=== PATIENT | male | born 1940 | race Caucasian/White ===

== ENCOUNTER 2016-06-07 16:45 | Emergency (ER) | payer MEDICARE, BC ==
[~2016-06-07] VITALS: Ht 182.9 cm; Wt 87.1 kg
--- NOTE | 2016-06-07 17:18 | Urgent Treatment Center Report ---
History of Present Issue Date/Time Seen by Provider 06/07/16 1710 Visit Reason Pt arrived:Walked Presenting Problem:PT STATES BEING RELEASED BY FOR HIP REPLACEMENT A MONTH AGO. STATES HE HAS BEEN DOING USUAL ACTIVITIES SINCE. STATES TODAY HE WAS TRAVELING WITH SON AND WAS IN AND OUT OF TRUCK FREQUENTLY. STATES ATTEMPTED TO GET BACK INTO TRUCK AND WENT TO RAISE LEG AND HAD PAIN TO LOWER RIGHT BACK ABOVE HIP. Location if Accident: Onset of symptoms date/time:06/07/16/ or onset unknown for:MEDICAL HX UNKNOWN Have you (or family members/close friends) recently traveled outside the [place]? N If Yes, where/when: Have you had exposure to infectious disease within the past month? TB? Other? Specify: Patient state that he had hip replacement surgery in 2016 states that he was recently released by his doctor to go back to full activity. States that for the last month he has been doing all his previous activities without problems states that yesterday he may have over did it with getting in and out of the car multiple times states that today he was riding with his son and as he went to get back in truck he raised his leg and felt pain that shot through his hip up into his back area and has now having some discomfort with movement of hip ALLERGIES Coded Allergies: Penicillins (I-HIVES 11/17/15) hydrocodone (NA-NAUSEA 11/17/15) History Medical History General CAD? No Angina: No NE: No Hypertension? Yes Hyperlipidemia? Yes CHF? No DVT? No PE? No COPD? No Asthma? No Anemia? No GERD? Yes Gastric ulcers? No GI Bleed? No Hernia? No Thyroid Problems? Yes Hypothyroidism? Yes CVA? No Seizures? 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 Yes Renal Insuffiency? No UTI? No Stones? No BPH? Yes GB Disease: No Nephritic Syndrome? No Asplenia? No Hepatitis? No Sickle Cell Disease? No Arthritis? No Migraines? No Cataracts? No Glaucoma? No MRSA? No HIV? No TB? No Anxiety? No Depression? No Cancer? No Immunization HX DT/Tetanus Unknown Flu NEVER Pneumonia REFUSES Surgical Hx Previous Surgery?Y CABG 2009 [facility] SX HEIDI WRIST CYST FROM BACK RIGHT HIP REPLACEMENT Family History Family HX Diabetes No CAD Yes Hypertension Yes Hyperlipidemia Yes Cancer No TB No Social History Smoking Hx Smoker: Never Smoker Tobacco: No Alcohol Alcohol: No Review of Systems All Other Systems Reviewed and Negative Musculoskeletal other (hip pain) Physical Exam Vital Signs Vital Signs Date Time Temp Pulse Resp B/P Pulse O2 O2 Flow FiO2 Ox Delivery Rate 06/07 1700 97.6 79 20 106/73 99 General Appearance normal appearance, WD/WN, no apparent distress, mild distress Respiratory Status Yes: trachea midline, chest symmetrical, non tender chest. No: respiratory distress. 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 States he came in because he was afraid the hip came out of place Medical Decision Making LABS/Meds/Orders Pt receiving controlled substance in ED? No Results/Orders Orders Procedure Date/time Status HIP RT 2-3V W/PELVIS IF PERFOR 06/08 1707 Active XRAY/CT/US XRAY/CT/US XRAY hip XR interpretation by reviewed by me Xray Results normal/NAD, no fracture seen Departure Departure Time of Disposition 1807 Disposition DC Home or Self Care(routine) Clinical Impression Primary Impression: Hip pain Qualifiers: Laterality: right Qualified Code: M25.551 - Pain in right hip Condition STABLE Referrals No AREVALO,Edward (Family) SOLANGE MISHRA B: Tomorrow-Call Office Call office first thing in morning and get appointment Make sure to let them know about being in the [facility] tonight and issues seen for. Patient Instructions Help for Hip Pain Additional Instructions Rest Take Prescribed Tramadol as directed for pain Follow up with Dr Simpson tomorrow as he is done the hip replacment Follow up with family doctor Return if needed at 1812
--- NOTE | 2016-06-07 17:18 | Urgent Treatment Center Report ---
History of Present Issue Date/Time Seen by Provider 06/07/16 1710 Visit Reason Pt arrived:Walked Presenting Problem:PT STATES BEING RELEASED BY FOR HIP REPLACEMENT A MONTH AGO. STATES HE HAS BEEN DOING USUAL ACTIVITIES SINCE. STATES TODAY HE WAS TRAVELING WITH SON AND WAS IN AND OUT OF TRUCK FREQUENTLY. STATES ATTEMPTED TO GET BACK INTO TRUCK AND WENT TO RAISE LEG AND HAD PAIN TO LOWER RIGHT BACK ABOVE HIP. Location if Accident: Onset of symptoms date/time:06/07/16/ or onset unknown for:MEDICAL HX UNKNOWN Have you (or family members/close friends) recently traveled outside the [place]? N If Yes, where/when: Have you had exposure to infectious disease within the past month? TB? Other? Specify: Patient state that he had hip replacement surgery in 2016 states that he was recently released by his doctor to go back to full activity. States that for the last month he has been doing all his previous activities without problems states that yesterday he may have over did it with getting in and out of the car multiple times states that today he was riding with his son and as he went to get back in truck he raised his leg and felt pain that shot through his hip up into his back area and has now having some discomfort with movement of hip ALLERGIES Coded Allergies: Penicillins (I-HIVES 11/17/15) hydrocodone (NA-NAUSEA 11/17/15) History Medical History General CAD? No Angina: No [place]: No Hypertension? Yes Hyperlipidemia? Yes CHF? No DVT? No PE? No COPD? No Asthma? No Anemia? No GERD? Yes Gastric ulcers? No GI Bleed? No Hernia? No Thyroid Problems? Yes Hypothyroidism? Yes CVA? No Seizures? 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 Yes Renal Insuffiency? No UTI? No Stones? No BPH? Yes GB Disease: No Nephritic Syndrome? No Asplenia? No Hepatitis? No Sickle Cell Disease? No Arthritis? No Migraines? No Cataracts? No Glaucoma? No MRSA? No HIV? No TB? No Anxiety? No Depression? No Cancer? No Immunization HX DT/Tetanus Unknown Flu NEVER Pneumonia REFUSES Surgical Hx Previous Surgery?Y CABG 2009 [facility] SX HEIDI WRIST CYST FROM BACK RIGHT HIP REPLACEMENT Family History Family HX Diabetes No CAD Yes Hypertension Yes Hyperlipidemia Yes Cancer No TB No Social History Smoking Hx Smoker: Never Smoker Tobacco: No Alcohol Alcohol: No Review of Systems All Other Systems Reviewed and Negative Musculoskeletal other (hip pain) Physical Exam Vital Signs Vital Signs Date Time Temp Pulse Resp B/P Pulse O2 O2 Flow FiO2 Ox Delivery Rate 06/07 1700 97.6 79 20 106/73 99 General Appearance normal appearance, WD/WN, no apparent distress, mild distress Respiratory Status Yes: trachea midline, chest symmetrical, non tender chest. No: respiratory distress. 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 States he came in because he was afraid the hip came out of place Medical Decision Making LABS/Meds/Orders Pt receiving controlled substance in ED? No Results/Orders Orders Procedure Date/time Status HIP RT 2-3V W/PELVIS IF PERFOR 06/08 1707 Active XRAY/CT/US XRAY/CT/US XRAY hip XR interpretation by reviewed by me Xray Results normal/NAD, no fracture seen Departure Departure Time of Disposition 1807 Disposition DC Home or Self Care(routine) Clinical Impression Primary Impression: Hip pain Qualifiers: Laterality: right Qualified Code: M25.551 - Pain in right hip Condition STABLE Referrals No AREVALO,Edward (Family) SOLANGE MISHRA B: Tomorrow-Call Office Call office first thing in morning and get appointment Make sure to let them know about being in the [facility] tonight and issues seen for. Patient Instructions Help for Hip Pain Additional Instructions Rest Take Prescribed Tramadol as directed for pain Follow up with Dr Simpson tomorrow as he is done the hip replacment Follow up with family doctor Return if needed at 1812
--- NOTE | 2016-06-07 17:45 | RADIOLOGY REPORT PS360 ---
HIP RT 2-3V W/PELVIS IF PERFOR Ordering Physician: ABHILASH PATINO APRN Patient Age: 75 years: Male HISTORY: PAIN TECHNIQUE: AP and crosstable lateral view right hip along with AP pelvis FINDINGS Right total hip arthroplasty appears intact The acetabular component secured with a screw passing into the posterior superior acetabulum. There seems to be good relationship between the femoral head and acetabular component with no dislocation.. The medullary stem the femoral prosthesis appears to be appropriately placed at the proximal femur with no fracture evident at proximal femur. Osseous pelvis appears intact. The left hip is intact. Diffuse demineralization. Degenerative changes are seen throughout the lower L-spine multilevel degenerative disc changes and marginal osteophytes. IMPRESSION: Right GRACE Appears intact. No fracture nor dislocation.
[2016-06-07 18:13] VITALS: BP 106/73
== END 2016-06-07 18:28 | disposition home or self-care (01) ==
LOC: UTC 16:45
DX: M25.551 Pain in right hip (principal); I10 Essential (primary) hypertension; K21.9 Gastro-esophageal reflux disease without esophagitis; E11.9 Type 2 diabetes mellitus without complications; Z79.4 Long term (current) use of insulin